=== PATIENT | female | born 1960 | race Caucasian/White ===

== ENCOUNTER 2017-11-01 14:00 | Observation (INO) ==
[2017-11-01] MEDS ORDERED: Ondansetron 4 MG/2 ML VIAL IVP ONE (14:14)
[2017-11-01] MEDS ORDERED: Aspirin 81 MG TAB.CHEW PO ONE (14:14)
[2017-11-01 15:10] LABS: Hemoglobin 9.9 g/dL (11.5-15.4); Red Cell Distribution Width 16.4 % (11.5-14.5)
[2017-11-01] MEDS: Nitroglycerin 0.4 MG TAB.SUBL SL PRN ×2 (15:10→15:15)
[2017-11-01 15:11] LABS: Hematocrit 34.6 % (35.3-44.9); Mean Corpuscular HGB Conc 28.6 g/dL (31.6-35.5); Mean Corpuscular Hemoglobin 20.3 pg (28.0-33.3); Mean Corpuscular Volume 70.9 fL (83.0-100.0); Mean Platelet Volume 10.3 fL (9.4-12.4); Platelet Count 213 K/mcL (140-400); Red Blood Count 4.88 M/mcL (3.82-4.97)
--- NOTE | 2017-11-01 15:11 | Emergency Department Note ---
START Narrative - START START: I examined this patient and my medical decision-making was reviewed with the emergency medicine resident. I agree with the documented findings, disposition and treatment plan as described except to the extent set forth below. Patient seen with emergency medicine resident Dr. Zaki Ponce, Please see a copy of his note for details of the H&P, ED evaluation, management and disposition. I have independently evaluated the patient and confirmed appropriate portions of the history and physical exam. Briefly: 57-year-old female with a heart score between 4 and 5 presents with chest pain and shortness of breath. He said to prior catheter were negative. Patient is getting aspirin nitroglycerin EKG shows nonspecific EKG changes but no acute ischemic changes. Patient with a troponin chest x-ray screening labs and admission is anticipated. Disposition pending.
[2017-11-01 15:15] LABS: INR 1.1; Prothrombin Time 11.4 Seconds (9.4-12.1)
[2017-11-01 15:17] LABS: BUN/Creatinine Ratio 11 (6-26); Blood Urea Nitrogen 8 mg/dL (6-20); Calcium 9.8 mg/dL (8.6-10.3); Carbon Dioxide 22 mEq/L (23-29); Chloride 105 mEq/L (98-107); Glucose 225 mg/dL (70-105); Osmolality,Calculated 289 (280-300); Potassium 4.1 mEq/L (3.5-5.1); Sodium 137 mEq/L (136-145); eGFR For African Americans > 60 (> 60); eGFR For Non-African Americans > 60 (> 60)
--- NOTE | 2017-11-01 15:40 | Emergency Department Note ---
Disposition Clinical Impression: Chest pain Qualifiers: Chest pain type: unspecified Qualified Code(s): R07.9 - Chest pain, unspecified Disposition: Admitted As Inpatient Condition: Good Referrals: Peter Connors MD [Primary Care Provider] - Forms: ED Satisfaction Letter General Adult HPI - General Chief complaint: ED Chest Pain Stated complaint: CP Time Seen by Provider: 11/01/17 14:12 Source: patient Limitations: no limitations Nursing Notes Reviewed: Yes Vital Signs Reviewed: Yes - History of Present Illness HPI Narrative: Patient presents today for evaluation of chest pain. Patient states symptoms started earlier today with some Tums in the neck that have traveled down to involve the chest. The patient describes pressure in her chest. Patient has associated nausea without occasional diaphoresis episodes. The patient states that she quit smoking approximately 5 years ago. She has had cardiac evaluation with 2 cardiac caths but the most recent one being greater than 2 years ago. Pain Scale: 0 - Related Data Home Medications Medication Instructions Recorded Confirmed Acetaminophen/Butalbital/Caffe 1 - 2 tab PO HS PRN 08/25/16 08/25/16 [Fioricet] Albuterol Sulfate [Proair Hfa] 2 puff IH Q4H PRN 08/25/16 08/25/16 Aspirin 81 mg PO DAILY 08/25/16 08/25/16 Budesonide/Formoterol 80/4.5 2 puff IH BIDR 08/25/16 08/25/16 [Symbicort 80/4.5] Calcium Citrate/Vitamin D3 1 tab PO DAILY 08/25/16 08/25/16 [Calcium Citrate - Vit D Caplet] Canagliflozin [Invokana] 100 mg PO DAILY 08/25/16 08/25/16 Cyanocobalamin (Vitamin B-12) 1,000 mcg PO DAILY 08/25/16 08/25/16 [Vitamin B12] Diclofenac Sodium [Voltaren] 1 appl TP QID 08/25/16 08/25/16 Fluticasone Propionate Nasal 1 spray NS DAILY 08/25/16 08/25/16 [Flonase] Gabapentin [Neurontin] 300 - 600 mg PO HS 08/25/16 08/25/16 Loratadine [Allergy Relief] 10 mg PO DAILY 08/25/16 08/25/16 Metformin HCl [Metformin HCl ER] 500 mg PO DAILY 08/25/16 08/25/16 Multivitamin [One Daily Essential] 1 tab PO DAILY 08/25/16 08/25/16 Pantoprazole Sodium [Protonix] 40 mg PO DAILY 08/25/16 08/25/16 Sertraline [Zoloft] 50 mg PO DAILY 08/25/16 08/25/16 Tizanidine HCl 4 mg PO HS PRN 08/25/16 08/25/16 Previous Rx's Medication Instructions Recorded Ondansetron ODT [Zofran ODT] 4 mg SL Q8HR #12 tab.rapdis 12/29/16 Allergies Allergy/AdvReac Type Severity Reaction Status Date / Time No Known Allergies Allergy Verified 11/01/17 15:22 Review of Systems: CONSTITUTIONAL: No weight loss, fever, chills, weakness or fatigue. HEENT: Eyes: No visual changes. Ears, Nose, Throat: No hearing loss, difficulty talking or unable to swallow. SKIN: No rash or itching. CARDIOVASCULAR: Chest pain RESPIRATORY: No shortness of breath, cough or sputum. GASTROINTESTINAL: Nausea GENITOURINARY: No burning on urination or hematuria. NEUROLOGICAL: No headache, dizziness, syncope, paralysis, ataxia, numbness or tingling in the extremities. No change in bowel or bladder control. MUSCULOSKELETAL: No muscle pain, back pain, joint pain or stiffness. Past Medical History - Past Medical History Medical history: Reports: arthritis, asthma, diabetes, GERD, hyperlipidemia, hypertension, RA Surgical history: Reports: herniorrhaphy, ADRIANA/BSO Psychiatric history: Reports: depression - Social History Smoking Status: Never smoker Smokeless Tobacco Status: No Alcohol use: Reports: none Drug use: Reports: none Physical Exam General: Well appearing, nontoxic, no acute distress Head: Normocephalic Atraumatic Eyes: PERRL, EOMI ENT: Airway patent, no stridor Neck: supple, no meningismus Chest: Lungs clear to auscultation bilateral Cardiac: Regular rate and rhythm, no murmurs, rubs or gallops Abdomen: soft, nontender, nondistended; no guarding, rebound, or tenderness to percussion Musculoskeletal: Calves symmetric, nontender, no palpable cord Skin: No rash, normal skin tone Neuro: Alert and Oriented to person, place, and time; No focal deficit, - General Limitations: no limitations General appearance: alert Course - Reevaluation(s) Reevaluation #1: Patient's chest pain relieved with nitroglycerin. - Consultations Consultation #1: Discussed with hospitalist. Patient accepted for admission. Vital Signs Temperature 0 F L 11/01/17 14:04 Pulse Rate 0 11/01/17 14:04 Respiratory Rate 0 11/01/17 14:04 Blood Pressure 0/0 11/01/17 14:04 O2 Sat by Pulse Oximetry 0 11/01/17 14:04 Temperature 98.5 F 11/01/17 14:23 Pulse Rate 100 11/01/17 15:20 Respiratory Rate 20 11/01/17 15:20 Blood Pressure 113/80 11/01/17 15:20 O2 Sat by Pulse Oximetry 95 11/01/17 15:20 Oxygen Delivery Oxygen Delivery Nasal Cannula Medical Decision Making - Medical Records Medical records reviewed: Yes I reviewed the patient's medical records. - Lab Data Lab results reviewed: Yes I reviewed the patient's lab results. Result diagrams: 11/01/17 14:57 11/01/17 14:18 Lab Results 11/01/17 11/01/17 11/01/17 Range/Units 14:18 14:18 14:18 WBC (4.3-11.1) K/mcL RBC (3.82-4.97) M/mcL Hgb (11.5-15.4) g/dL Hct (35.3-44.9) % MCV (83.0-100.0) fL MCH (28.0-33.3) pg MCHC (31.6-35.5) g/dL RDW (11.5-14.5) % Plt Count (140-400) K/mcL MPV (9.4-12.4) fL Seg Neutrophils % % Lymphocytes % % Monocytes % % Neutrophils # (1.6-8.9) K/mcL Lymphocytes # (0.6-4.6) K/mcL Monocytes # (0.0-1.3) K/mcL Platelet Estimate (Normal) Hypochromasia (Not Present) PT (9.4-12.1) Seconds INR Sodium 137 (136-145) mEq/L Potassium 4.1 (3.5-5.1) mEq/L Chloride 105 (98-107) mEq/L Carbon Dioxide 22 L (23-29) mEq/L BUN 8 (6-20) mg/dL Creatinine 0.75 (0.60-1.20) mg/dL Est GFR ( Amer) > 60 (> 60) Est GFR (Non-Af Amer) > 60 (> 60) BUN/Creatinine Ratio 11 (6-26) Glucose 225 H (70-105) mg/dL Calculated Osmolality 289 (280-300) Calcium 9.8 (8.6-10.3) mg/dL Troponin I < 0.03 (< 0.04) ng/mL Specimen Rejected Clotted 11/01/17 11/01/17 Range/Units 14:57 14:57 WBC 5.8 (4.3-11.1) K/mcL RBC 4.88 (3.82-4.97) M/mcL Hgb 9.9 L (11.5-15.4) g/dL Hct 34.6 L (35.3-44.9) % MCV 70.9 L (83.0-100.0) fL MCH 20.3 L (28.0-33.3) pg MCHC 28.6 L (31.6-35.5) g/dL RDW 16.4 H (11.5-14.5) % Plt Count 213 (140-400) K/mcL MPV 10.3 (9.4-12.4) fL Seg Neutrophils % 60.0 % Lymphocytes % 38.0 % Monocytes % 2.0 % Neutrophils # 3.5 (1.6-8.9) K/mcL Lymphocytes # 2.2 (0.6-4.6) K/mcL Monocytes # 0.1 (0.0-1.3) K/mcL Platelet Estimate Normal (Normal) Hypochromasia Present A (Not Present) PT 11.4 (9.4-12.1) Seconds INR 1.1 Sodium (136-145) mEq/L Potassium (3.5-5.1) mEq/L Chloride (98-107) mEq/L Carbon Dioxide (23-29) mEq/L BUN (6-20) mg/dL Creatinine (0.60-1.20) mg/dL Est GFR ( Amer) (> 60) Est GFR (Non-Af Amer) (> 60) BUN/Creatinine Ratio (6-26) Glucose (70-105) mg/dL Calculated Osmolality (280-300) Calcium (8.6-10.3) mg/dL Troponin I (< 0.04) ng/mL Specimen Rejected - Radiology Data Radiology results reviewed: Yes I reviewed the patient's radiology results. - EKG Data EKG #1 EKG attestation: Yes I reviewed and interpreted this EKG. EKG results narrative: EKG shows sinus tachycardia with a rate of 102. CA 156. QRS 89. QTC 407. Patient has no significant ST elevations or depressions. No significant changes from previous of 12/29/16.
[2017-11-01 15:54] LABS: Lymphocytes # 2.2 K/mcL (0.6-4.6); Monocytes # 0.1 K/mcL (0.0-1.3); Neutrophils # 3.5 K/mcL (1.6-8.9)
[2017-11-01 15:55] LABS: Hypochromasia Present (Not Present); Platelet Estimate Normal (Normal)
[2017-11-01] MEDS ORDERED: Naloxone 0.4 MG/ML INJ IVP PRN (16:08)
[2017-11-01] MEDS ORDERED: *HR* HYDROcodone/Acet 5/325 mg TABLET PO PRN (16:08)
[2017-11-01] MEDS ORDERED: *HR* Dextrose 50 % in Water (Syg) 50 ML SYRINGE IVP PRN (16:10)
[2017-11-01] MEDS ORDERED: D5% in Water 1,000 ML IVC PRN (16:10)
[2017-11-01] MEDS ORDERED: Dextrose Gel 15 GM/37.5 ML TUBE PO PRN ×2 (16:10)
[2017-11-01] MEDS ORDERED: Azithromycin 250 MG TABLET PO ONE (16:13)
--- NOTE | 2017-11-01 16:15 | Internal Med History&Physical ---
Date of Encounter: 11/01/17 Time of Encounter: 17:06 Assessment and Plan (1) Chest pain Current visit: Yes Status: Acute Patient with risk factors including diabetes mellitus and prior smoking history. Admitting EKG and troponin negative for ischemia. Cycle troponins Obtain echo and stress test. Check A1C Check lipid panel Continue home dose of ASA Qualifiers: Chest pain type: unspecified Qualified Code(s): R07.9 - Chest pain, unspecified (2) Bronchitis Current visit: Yes Status: Acute Per CXR Duonebs Azithromycin by mouth. (3) Diabetes mellitus Current visit: Yes Status: Chronic Patient is insulin naive. Fingerstick before meals and at bedtime. Hold home medications Sliding scale insulin. 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 mellitus terminal carman insulin use: without snf use Qualified Code(s): E11.9 - Type 2 diabetes mellitus without complications (4) Anemia Current visit: Yes Status: Chronic Possibly due to iron deficiency, MCV 70 Obtain ireon panel, Vit B12, Folate-patient has hx of Route-Lc NO bleeding at this time She does state she has EGD scheduled at [facility] next month Qualifiers: Anemia type: iron deficiency Iron deficiency anemia type: unspecified iron deficiency Qualified Code(s): D50.9 - Iron deficiency anemia, unspecified Internal Medicine - H&P: HPI Chief complaint: Chest pain Admitted From: Home Plans for Post Hospital Care: Home History of present illness: Ms. Amaral is a 57 year old female with PMH of DM, who presented to the ER with complaints of chest pain. She reports that she woke up this morning with pain on the left side of her neck chest: Head to the left in her chest. Sheassociated nausea and shortness of breath. She denies diaphoresis. No known aggravating or relieving factors. The time of review, her chest pain has resolved. She reported chest pain responded to nitroglycerin received by EMS. She also reports history of cardiac workup in the past has been negative. She had a route-en-Y procedure about 2 years ago at [facility], and has been following up over there and She reports a previous history of anemia. She denies cough or fever, she denies recent sick contacts. She used to smoke , but quit 5 years ago Past Med Surg Social Fam HX - Past Medical History Medical history: arthritis, asthma, diabetes, GERD, hyperlipidemia, hypertension , RA Psychiatric history: depression - Past Surgical History Surgical History: herniorrhaphy, ADRIANA/BSO - Social History Smoking Status: Never smoker Smokeless Tobacco Status: No Alcohol use: none Drug use: none Internal Medicine - H&P: Meds Aspirin 81 mg PO DAILY 08/25/16 [History] Calcium Citrate/Vitamin D3 [Calcium Citrate - Vit D Caplet] 1 tab PO DAILY 08/25 [History] Cyanocobalamin (Vitamin B-12) [Vitamin B12] 1,000 mcg PO DAILY 08/25/16 [History ] Diclofenac Sodium [Voltaren] 1 appl TP QID 08/25/16 [History] Fluticasone Propionate Nasal [Flonase] 1 spray NS DAILY 08/25/16 [History] Gabapentin [Neurontin] 600 mg PO HS 08/25/16 [History] Metformin HCl [Metformin HCl ER] 500 mg PO QAM 08/25/16 [History] Multivitamin [One Daily Essential] 1 tab PO DAILY 08/25/16 [History] Sertraline [Zoloft] 100 mg PO DAILY 08/25/16 [History] Tizanidine HCl 4 mg PO HS PRN 08/25/16 [History] Canagliflozin [Invokana] 300 mg PO DAILY 11/01/17 [History] Cetirizine HCl [All Day Allergy] 10 mg PO DAILY 11/01/17 [History] Dicyclomine [Bentyl] 10 mg PO QID 11/01/17 [History] Fluticasone/Vilanterol [Breo Ellipta 100-25 Mcg INH] 1 puff IH DAILY 11/01/17 [ History] Metformin HCl [Metformin HCl ER] 1,000 mg PO HS 11/01/17 [History] Omeprazole [PriLOSEC] 20 mg PO DAILY 11/01/17 [History] 3 Allergy/AdvReac Type Severity Reaction Status Date / Time No Known Allergies Allergy Verified 11/01/17 15:22 All Systems PM: A 10-system review of systems was performed and is negative for pertinent findings except as documented above in the HPI. - Constitutional Constitutional: no chills, no fever(s), no night sweats - EENT Eyes: no change in vision, no discharge, no pain, no photophobia Ears: no ear discharge, no ear pain, no tinnitus Nose, mouth and throat: no dysphagia, no nasal discharge, no neck pain, no sore throat - Cardiovascular Cardiovascular ROS IM: as per HPI - Respiratory Respiratory: as per HPI - Gastrointestinal Gastrointestinal: no abdominal pain, no diarrhea, no hematemesis, no hematochezia, no melena, no nausea, no vomiting - Genitourinary Genitourinary: no change in urinary stream, no dysuria, no flank pain, no hematuria - Musculoskeletal Musculoskeletal ROS IM: no numbness, no tingling - Integumentary Integumentary IM: no rash, no unusual bruising - Neurological Neurological ROS: no confusion, no convulsions, no focal weakness, no numbness, no tingling, no tremor(s) - Hematologic/Lymphatic Hematologic/Lymphatic: no easy bruising - Constitutional Vitals: Temp Pulse Resp BP Pulse Ox 98.5 F 84 20 117/80 98 11/01/17 14:23 11/01/17 16:00 11/01/17 16:00 11/01/17 16:00 11/01/17 16:00 General appearance: Present: A&O X 3, pleasant, no acute distress - Head Head exam: Present: atraumatic, normocephalic - Eye Eye exam: Present: PERRL, conjuntiva pink, sclera anicteric Pupils: Present: PERRL - Neck Neck exam general surgery: Present: supple, trachea midline. Absent: lymphadenopathy - Respiratory Respiratory exam: Present: CTAB. Absent: accessory muscle use, rales, rhonchi, wheezes - Cardiovascular Cardiovascular exam: Present: RRR, +S1, +S2. Absent: diastolic murmur, gallop, rubs, systolic murmur - GI/Abdominal GI/Abdominal exam: Present: normal bowel sounds, soft, no peritoneal signs. Absent: distended, tenderness - Extremities Exam Extremities exam: Present: warm, radial pulses palpable and symmetrical. Absent : calf tenderness, cyanotic, pedal edema - Neurological Exam Neurological exam: Present: alert, CN II-XII intact, oriented X3, no focal deficits. Absent: pronater drift, facial droop, speech deficit - Skin Skin exam: Present: dry, intact Internal Med - H&P Results - Labs CBC & Chem 7: 11/01/17 14:57 11/01/17 14:18 Labs: Short CBC 11/01/17 Range/Units 14:57 WBC 5.8 (4.3-11.1) K/mcL Hgb 9.9 L (11.5-15.4) g/dL Hct 34.6 L (35.3-44.9) % Plt Count 213 (140-400) K/mcL Neutrophils # 3.5 (1.6-8.9) K/mcL BMP 11/01/17 14:18 Sodium 137 Potassium 4.1 Chloride 105 Carbon Dioxide 22 L BUN 8 Creatinine 0.75 Glucose 225 H Calcium 9.8 Cardiac Enzymes 11/01/17 Range/Units 14:18 Troponin I < 0.03 (< 0.04) ng/mL - Impressions ITS Impressions Chest X-Ray 11/01/17 14:14 IMPRESSION: Mild airway thickening suggests inflammation, such as that seen with asthma, bronchitis or smoking. No consolidative pneumonia. D/ / Scottie Salcedo / Scottie Salcedo Interpreting Provider: Scottie Salcedo
[2017-11-01] MEDS ORDERED: Ipratropium/Albuterol Neb 3 ML ONE (16:47)
[2017-11-01] MEDS: Ipratropium/Albuterol Neb 3 ML IH SCH ×2 (16:49→23:14)
[2017-11-01] MEDS: Acetaminophen 325 MG TABLET PO PRN (17:29)
[2017-11-01] MEDS: Insulin LISPRO 300 UNITS/3 ML VIAL SQ SCH (19:27)
[2017-11-01] MEDS: (Diclofenac Sodium [Voltaren] 1 APPL) TP SCH (20:29)
[2017-11-01] MEDS: Gabapentin 300 MG CAPSULE PO SCH (20:30)
[2017-11-01] MEDS: tiZANidine 4 MG TABLET PO PRN (20:36)
[2017-11-01] MEDS ORDERED: Insulin LISPRO 300 UNITS/3 ML VIAL SQ SCH (21:00)
[2017-11-02 03:30] LABS: Basophils % 0.4 %; Eosinophils % 0.8 %; Hemoglobin 8.7 g/dL (11.5-15.4); Immature Granulocytes % 0.2 % (0-4); Lymphocytes # 2.2 K/mcL (0.6-4.6); Lymphocytes % 45.8 %; Mean Corpuscular HGB Conc 28.1 g/dL (31.6-35.5); Mean Corpuscular Hemoglobin 20.1 pg (28.0-33.3); Mean Corpuscular Volume 71.6 fL (83.0-100.0); Mean Platelet Volume 9.8 fL (9.4-12.4); Monocytes # 0.3 K/mcL (0.0-1.3); Monocytes % 6.1 %; Neutrophils # 2.2 K/mcL (1.6-8.9); Platelet Count 173 K/mcL (140-400); Red Blood Count 4.33 M/mcL (3.82-4.97); Red Cell Distribution Width 16.4 % (11.5-14.5); Segmented Neutrophils % 46.7 %
[2017-11-02 03:37] LABS: % Iron Saturation 5 % (15-50); BUN/Creatinine Ratio 14 (6-26); Blood Urea Nitrogen 8 mg/dL (6-20); Calcium 9.2 mg/dL (8.6-10.3); Carbon Dioxide 28 mEq/L (23-29); Chloride 105 mEq/L (98-107); Chol/HDL Ratio 3.6 (0-4.9); Cholesterol 136 mg/dL (< 200); Glucose 155 mg/dL (70-105); HDL Cholesterol 38 mg/dL (40-59); Iron 24 mcg/dL (50-170); LDL Cholesterol,Calculated 50 mg/dL (0-99); Osmolality,Calculated 287 (280-300); Potassium 3.6 mEq/L (3.5-5.1); Sodium 138 mEq/L (136-145); Transferrin 329 mg/dL (203-362); Triglycerides 240 mg/dL (< 150); eGFR For African Americans > 60 (> 60); eGFR For Non-African Americans > 60 (> 60)
[2017-11-02 04:29] LABS: Anisocytosis 1+ (Not Present); Hypochromasia Present (Not Present); Platelet Estimate Normal (Normal)
[2017-11-02] MEDS: Ipratropium/Albuterol Neb 3 ML IH SCH ×6 (04:43→23:33)
[2017-11-02] MEDS ORDERED: Regadenoson 0.4 MG/5 ML SYRINGE IVP ONE (06:20)
[2017-11-02] MEDS: Multivit/Ca/Min/Fe/FA 1 TAB TABLET PO SCH (09:42)
[2017-11-02] MEDS: Azithromycin 250 MG TABLET PO SCH (09:42)
[2017-11-02] MEDS: Cyanocobalamin (B-12) 1,000 MCG TABLET PO SCH (09:42)
[2017-11-02] MEDS: Insulin LISPRO 300 UNITS/3 ML VIAL SQ SCH ×3 (09:43→17:24)
[2017-11-02] MEDS: Aspirin 81 MG TAB.CHEW PO SCH (09:43)
[2017-11-02] MEDS: Loratadine 10 MG TABLET PO SCH (09:43)
[2017-11-02] MEDS: VITAMIN D3 PO SCH (09:44)
[2017-11-02] MEDS: CALCIUM CITRATE PO SCH (09:44)
[2017-11-02] MEDS: Fluticasone Propionate Nasal 50 MCG/SPRAY BOTTLE NS SCH (09:44)
[2017-11-02] MEDS: (Diclofenac Sodium [Voltaren] 1 APPL) TP SCH ×3 (09:45→17:24)
[2017-11-02] MEDS: (Fluticasone/Vilanterol [Breo Ellipta 100-25 Mcg Inh]) IH SCH (09:45)
[2017-11-02] MEDS: Acetaminophen 325 MG TABLET PO PRN (11:07)
[2017-11-02] MEDS ORDERED: 0.9 % Sodium Chloride 500 ML IVC ONE (11:52)
[2017-11-02 11:54] LABS: Hemoglobin A1C 8.5 %
[2017-11-02] MEDS ORDERED: Dextrose Gel 15 GM/37.5 ML TUBE PO PRN (12:45)
[2017-11-02] MEDS ORDERED: D5% in Water 1,000 ML IVC PRN (12:45)
--- NOTE | 2017-11-02 18:07 | Internal Med Progress Note ---
Date of Encounter: 11/02/17 Time of Encounter: 12:00 - Assessment and plan (1) Chest pain Current Visit: Yes Status: Acute Assessment and plan: Patient presented to emergency department with complaints of chest pain that she awakened with left-sided neck and chest. She reported associated nausea and shortness of breath or diaphoresis. Patient states that while at work just became worse. When she returned from her stress test today she began having chest heaviness, became diaphoretic and pale. EKG was normal Accu-Chek was 194 , vital signs were stable and within normal limits. Patient was given a 500 mL bolus. She states her blood sugars that high she feels like this. A1c is 8.5%, triglycerides are elevated at 240. Troponin is negative 3. Patient has stress test the defect that was consistent with artifact, the perfusion imaging was negative for ischemia or infarct was indicated EF of 74%. Echocardiogram showed an LVEF of 60-65% with mild LV DD, no significant valvular dysfunction. Due to patient's episode today, as well as anemia, she will stay overnight again for monitoring. Continue telemetry Continue home medications Qualifiers: Chest pain type: unspecified Qualified Code(s): R07.9 - Chest pain, unspecified (2) Bronchitis Current Visit: Yes Status: Acute Assessment and plan: Patient reports increased shortness of breath, as well has chest pain. Chest x- ray showed mild airway thickening, suggestive of bronchitis. Patient is a former smoker. Patient is on room air. Continue duo nebs, Zithromax. O2 as needed, titrate to maintain sats greater than 92%. Chest X-Ray 11/01/17 14:14 IMPRESSION: Mild airway thickening suggests inflammation, such as that seen with asthma, bronchitis or smoking. No consolidative pneumonia. D/ / Scottie Salcedo / Scottie Salcedo Interpreting Provider: Scottie Salcedo (3) Diabetes mellitus Current Visit: Yes Status: Chronic Assessment and plan: A1c is 8.5%. Continue sliding scale insulin, Accu-Cheks daily at bedtime, diabetic diet. 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 Labs were indicative of iron deficiency anemia with iron 24, % saturation 5 I have started patient on ferrous sulfate 325 mg by mouth twice daily. H&H every 6 hours Type and screen ordered Prepare to Transfuse if hemoglobin less than 8 and symptomatic. Qualifiers: Anemia type: iron deficiency Iron deficiency anemia type: unspecified iron deficiency Qualified Code(s): D50.9 - Iron deficiency anemia, unspecified (5) DVT prophylaxis Current Visit: Yes Status: Acute Assessment and plan: Davion hose ordered. No pharmacologic prophylaxis due to anemia. - Time Spent With Patient less than 15 minutes - Subjective Interval history: Patient was seen at the bedside at approximately 12 PM. Patient was alert, awake, oriented, answered questions appropriately. She became diaphoretic, pale , stated that she did not feel well. EKG done at that time was normal sinus. Accu-Chek was 194. Vital signs were stable and within normal limits. She reported chest pain at the time that was new since she returned from her stress test. She reports that she feels this when her blood sugar is elevated. She denied headache or blurred vision, no abdominal pain, no nausea, vomiting, diarrhea. Patient will stay overnight for continued monitoring, as well as his anemia. - Constitutional Vitals: Temp Pulse Resp BP Pulse Ox 98.4 F 83 18 126/75 97 11/02/17 15:38 11/02/17 15:38 11/02/17 15:38 11/02/17 15:38 11/02/17 15:38 General appearance: Present: cooperative, A&O X 3, pleasant, no acute distress, answers questions appropriately - Head Head exam: Present: atraumatic, normal inspection, normocephalic - Eye Eye exam: Present: normal appearance, conjuntiva pink, sclera anicteric - Neck Neck exam general surgery: Present: supple, trachea midline. Absent: lymphadenopathy - Respiratory Respiratory exam: Present: CTAB. Absent: accessory muscle use, decreased breath sounds, rales, rhonchi, wheezes - Cardiovascular Cardiovascular exam: Present: RRR, +S1, +S2. Absent: bradycardia, diastolic murmur, gallop, rubs, systolic murmur, tachycardia - GI/Abdominal GI/Abdominal exam: Present: normal bowel sounds, soft. Absent: distended, hepatomegaly, tenderness - Extremities Exam Extremities exam: Present: normal capillary refill, normal inspection, warm, radial pulses palpable and symmetrical. Absent: calf tenderness, cyanotic, pedal edema, tenderness - Neurological Exam Neurological exam: Present: alert, oriented X3, no focal deficits. Absent: facial droop, speech deficit - Skin Skin exam: Present: diaphoretic, dry, intact, pallor, warm. Absent: rash Internal Medicine: Result - Labs CBC & Chem 7: 11/02/17 03:08 11/02/17 03:08 Labs: Short CBC 11/02/17 Range/Units 03:08 WBC 4.7 (4.3-11.1) K/mcL Hgb 8.7 L (11.5-15.4) g/dL Hct 31.0 L (35.3-44.9) % Plt Count 173 (140-400) K/mcL Neutrophils # 2.2 (1.6-8.9) K/mcL BMP 11/02/17 03:08 Sodium 138 Potassium 3.6 Chloride 105 Carbon Dioxide 28 BUN 8 Creatinine 0.57 L Glucose 155 H Calcium 9.2 Cardiac Enzymes 11/01/17 11/02/17 Range/Units 20:32 03:08 Troponin I < 0.03 < 0.03 (< 0.04) ng/mL - ABG Interpretation ABG results: PT/INR, D-dimer PT 11.4 Seconds (9.4-12.1) 11/01/17 14:57 Consult Discharge Plan - Plan Referrals: Peter Connors MD [Primary Care Provider] -
[2017-11-02 18:45] LABS: Hematocrit 32.1 % (35.3-44.9); Hemoglobin 9.1 g/dL (11.5-15.4)
--- NOTE | 2017-11-02 20:16 | Electrocardiograph Report ---
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
[2017-11-02] MEDS: Gabapentin 300 MG CAPSULE PO SCH (20:22)
[2017-11-02] MEDS ORDERED: Insulin LISPRO 300 UNITS/3 ML VIAL SQ SCH (21:00)
[2017-11-02] MEDS: tiZANidine 4 MG TABLET PO PRN (22:30)
[2017-11-03] MEDS: Insulin LISPRO 300 UNITS/3 ML VIAL SQ SCH ×3 (02:56→12:38)
[2017-11-03] MEDS: Ipratropium/Albuterol Neb 3 ML IH SCH ×4 (03:10→16:33)
[2017-11-03 05:08] LABS: Eosinophils % 1.2 %; Hemoglobin 8.7 g/dL (11.5-15.4); Immature Granulocytes % 0.2 % (0-4)
[2017-11-03 05:10] LABS: Basophils % 0.2 %; Eosinophils # 0.1 K/mcL (0.0-0.6); Hematocrit 31.4 % (35.3-44.9); Lymphocytes % 39.1 %; Mean Corpuscular HGB Conc 27.7 g/dL (31.6-35.5); Mean Platelet Volume 10.6 fL (9.4-12.4); Monocytes # 0.3 K/mcL (0.0-1.3); Monocytes % 6.4 %; Neutrophils # 2.2 K/mcL (1.6-8.9); Nucleated Red Blood Cells 0.7 /100 WBC (0); Platelet Count 187 K/mcL (140-400); Red Blood Count 4.36 M/mcL (3.82-4.97); Red Cell Distribution Width 16.6 % (11.5-14.5); Segmented Neutrophils % 52.9 %
[2017-11-03 05:25] LABS: BUN/Creatinine Ratio 22 (6-26); Blood Urea Nitrogen 12 mg/dL (6-20); Carbon Dioxide 29 mEq/L (23-29); Chloride 106 mEq/L (98-107); Sodium 141 mEq/L (136-145)
[2017-11-03 05:26] LABS: Calcium 9.1 mg/dL (8.6-10.3); Glucose 157 mg/dL (70-105); Osmolality,Calculated 295 (280-300); eGFR For African Americans > 60 (> 60); eGFR For Non-African Americans > 60 (> 60)
[2017-11-03 05:42] LABS: Lymphocytes # 1.6 K/mcL (0.6-4.6)
[2017-11-03 06:34] LABS: Anisocytosis 1+ (Not Present); Hypochromasia Present (Not Present); Ovalocytes 1+ (Not Present)
[2017-11-03 06:36] LABS: Macrocytosis Present (Not Present); Platelet Estimate Normal (Normal)
[2017-11-03] MEDS: Cyanocobalamin (B-12) 1,000 MCG TABLET PO SCH (08:41)
[2017-11-03] MEDS: Loratadine 10 MG TABLET PO SCH (08:41)
[2017-11-03] MEDS: Aspirin 81 MG TAB.CHEW PO SCH (08:41)
[2017-11-03] MEDS: Azithromycin 250 MG TABLET PO SCH (08:41)
[2017-11-03] MEDS: Multivit/Ca/Min/Fe/FA 1 TAB TABLET PO SCH (08:41)
[2017-11-03] MEDS: VITAMIN D3 PO SCH (08:46)
[2017-11-03] MEDS: CALCIUM CITRATE PO SCH (08:46)
[2017-11-03] MEDS: (Fluticasone/Vilanterol [Breo Ellipta 100-25 Mcg Inh]) IH SCH (08:46)
[2017-11-03 10:53] LABS: Bilirubin,Urine Negative (Negative); Blood,Urine Negative (Negative); Clarity,Urine Clear (Clear); Color,Urine Yellow (Yellow); Glucose,Urine (UA) >=1000 mg/dL (Normal); Ketones,Urine Negative (Negative); Leukocyte Esterase,Urine Negative (Negative); Nitrite,Urine Negative (Negative); Protein,Urine Negative (Neg-Trace); Specific Gravity,Urine 1.022 (1.010-1.025); Urobilinogen,Urine Normal (Normal)
[2017-11-03 12:06] VITALS: BP 125/79
[2017-11-03] MEDS: Fluticasone Propionate Nasal 50 MCG/SPRAY BOTTLE NS SCH (12:40)
--- NOTE | 2017-11-03 15:07 | Discharge Summary ---
- NOTES TO OUTPATIENT PROVIDER Notes to Outpatient Provider: Pt with new ROSALBA and has been placed on FeS04 325mg po bid. Date of Encounter: 11/03/17 Time of Encounter: 10:10 - Discharge Diagnosis (1) Chest pain Priority: Primary Status: Acute Comments: Pt denies chest pain today and states that she is feeling better. Pt reports that she feels that some of the cause of her chest pain is work related stress. She states that the pain becomes worse when she is at work or when she talks about work. A1c is 8.5%, triglycerides are elevated at 240. Troponin was negative 3. Patient had a stress test, there is a defect that is consistent with artifact, overall perfusion imaging was negative for ischemia or infarct, gated EF was 74% . Echocardiogram showed preserved EF with mild LV DVT and no significant valvular dysfunction. Recommend better glycemic control, lifestyle modifications for best glycemic control and triglycerides. Patient is feeling better and is ready for discharge. Qualifiers: Chest pain type: unspecified Qualified Code(s): R07.9 - Chest pain, unspecified (2) Bronchitis Priority: Secondary Status: Acute Comments: She reports increased shortness breath and chest pain prior to arrival. She is not feeling like she is having at this time. Her chest x-ray showed mild airway thickening, suggestive bronchitis. Patient is on room air, does not require supplemental oxygen. She has no dyspnea on exertion. We will continue course of Zithromax after discharge. (3) Diabetes mellitus Priority: Secondary Status: Chronic Comments: Uncontrolled. A1c is 8.5%. Continue home medications. Accu-Cheks. 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 mellitus intermediate insulin use: without intermediate teacher use Qualified Code(s): E11.9 - Type 2 diabetes mellitus without complications (4) Anemia Priority: Secondary Status: Chronic Comments: Hemoglobin remains at 8.7. MCV 72. Alves and B12 were both elevated. Iron was 24, percent sat is 5. Patient has been started on ferrous sulfate 325 mg by mouth twice a day and will need to follow-up for repeat H&H in approximately one week. Qualifiers: Anemia type: iron deficiency Iron deficiency anemia type: unspecified iron deficiency Qualified Code(s): D50.9 - Iron deficiency anemia, unspecified (5) DVT prophylaxis Priority: Secondary Status: Acute Comments: Patient is ambulatory. No pharmacologic due to anemia. Hospital course: Ms. Amaral is a 57 year old female with history of a Yesi-en-Y surgery and diabetes. Presented to the emergency room after sudden onset chest pain that she awakened with morning of admission with radiation to the left side of her neck left chest. She has associated nausea and shortness of breath, no diaphoresis. Chest x-ray was negative for any acute process. There appeared to be some thickening or what appeared to be chronic inflammation. Echocardiogram was within normal limits. Stress test was negative with gated EF of 74%. Patient had some anemia when she was admitted because of dizziness, nausea, diaphoresis. It resolved and patient states that when she does have hyperglycemia, she feels this way. Pt reports that she has had a lot of work related stress recently and her chest pain becomes worse while at work. Patient with new diagnosis deficiency anemia. She reports since her Yesi-en-Y surgery she has had multiple abdominal problems and is scheduled for EGD in December. Patient is stable and appropriate for discharge. Discharge discussed with: patient, family - Time Spent with Patient Total time spent providing and/or coordinating discharge services: Less than 30 minutes - Discharge Medications Prescriptions: Azithromycin [Zithromax] 250 mg PO DAILY #4 tablet Ferrous Sulfate 325 mg PO BIDWM #60 tablet Home Medications: Aspirin 81 mg PO DAILY 08/25/16 [History] Calcium Citrate/Vitamin D3 [Calcium Citrate - Vit D Caplet] 1 tab PO DAILY 08/25 [History] Cyanocobalamin (Vitamin B-12) [Vitamin B12] 1,000 mcg PO DAILY 08/25/16 [History ] Diclofenac Sodium [Voltaren] 1 appl TP QID 08/25/16 [History] Fluticasone Propionate Nasal [Flonase] 1 spray NS DAILY 08/25/16 [History] Gabapentin [Neurontin] 600 mg PO HS 08/25/16 [History] Metformin HCl [Metformin HCl ER] 500 mg PO QAM 08/25/16 [History] Multivitamin [One Daily Essential] 1 tab PO DAILY 08/25/16 [History] Sertraline [Zoloft] 100 mg PO DAILY 08/25/16 [History] Tizanidine HCl 4 mg PO HS PRN 08/25/16 [History] Canagliflozin [Invokana] 300 mg PO DAILY 11/01/17 [History] Cetirizine HCl [All Day Allergy] 10 mg PO DAILY 11/01/17 [History] Dicyclomine [Bentyl] 10 mg PO QID 11/01/17 [History] Fluticasone/Vilanterol [Breo Ellipta 100-25 Mcg INH] 1 puff IH DAILY 11/01/17 [ History] Metformin HCl [Metformin HCl ER] 1,000 mg PO HS 11/01/17 [History] Omeprazole [PriLOSEC] 20 mg PO DAILY 11/01/17 [History] Azithromycin [Zithromax] 250 mg PO DAILY #4 tablet 11/03/17 [Rx] Ferrous Sulfate 325 mg PO BIDWM #60 tablet 11/03/17 [Rx] Allergies/Adverse Reactions: 3 Allergy/AdvReac Type Severity Reaction Status Date / Time No Known Allergies Allergy Verified 11/01/17 15:22 Date of admission: 11/01/17 17:24 Primary care physician: Peter Connors MD Discharging clinician: Stephanie Wilcox Anticipated date of discharge: 11/03/17 - Constitutional Vitals: Temp Pulse Resp BP Pulse Ox 98.1 F 83 17 125/79 96 11/03/17 12:05 11/03/17 12:05 11/03/17 12:05 11/03/17 12:05 11/03/17 12:05 General appearance: Present: cooperative, A&O X 3, pleasant, no acute distress, answers questions appropriately - Head Head exam: Present: atraumatic, normal inspection, normocephalic - Eye Eye exam: Present: normal appearance, conjuntiva pink, sclera anicteric - Neck Neck exam general surgery: Present: supple, trachea midline. Absent: lymphadenopathy, tenderness - Respiratory Respiratory exam: Present: CTAB. Absent: accessory muscle use, rales, respiratory distress, rhonchi, wheezes - Cardiovascular Cardiovascular exam: Present: RRR, +S1, +S2. Absent: bradycardia, diastolic murmur, gallop, rubs, systolic murmur, tachycardia - GI/Abdominal GI/Abdominal exam: Present: normal bowel sounds, soft. Absent: distended, hepatomegaly, tenderness - Extremities Exam Extremities exam: Present: normal inspection, warm, radial pulses palpable and symmetrical. Absent: calf tenderness, cyanotic, normal capillary refill, pedal edema, tenderness - Neurological Exam Neurological exam: Present: alert, oriented X3, no focal deficits. Absent: facial droop, speech deficit - Skin Skin exam: Present: dry, intact, normal color, warm. Absent: rash - Patient Status Disposition: Home, Self-Care Condition: Good Functional capacity at discharge: independent ambulation Overall status at discharge: patient is back to baseline - Ambulatory Orders Ambulatory Orders: Hemoglobin and Hematocrit [HEME] Time Frame: 1 Week, Facility: [facility], Location: Lab - Discharge Instructions Follow Up With: Peter Connors MD [Primary Care Provider] - Additional Instructions: Please follow up with your PCP in the next week for a follow up visit. Return to the ER as needed for any other problem or concerns or if your symptoms return or worsen. Try to elminate some stress from your life Follow up with [facility] for your EGD as scheduled. Take your iron as directed and have your level redrawn as scheduled. Return to your normal diet and activities as tolerated. - Diet and Activity Activity: increase activity as tolerated Diet: advance to your usual diet
== END 2017-11-03 15:55 | disposition home or self-care (01) ==
LOC: 3BNU 14:00 → EMEROO 14:00 → 3BNU 18:28
PROVIDERS: ADMIT Internal Medicine; ATTEND Registered Nurse